=== PATIENT | female | born 1945 | race Native Hawaiian/Other Pacific Islander ===

== ENCOUNTER 2016-12-18 11:32 | Outpatient (CLI) | payer OTHER ==
[~2016-12-18 11:32] MED LIST: BENA10TA3 PO; HYDROCHLOROT12.5 M1 PO; LISI10TA11 PO; LOTENSIN HCT1 TAB PO; OMEP20CA PO; PRADAXA150 MG OR
[2016-12-18 12:02] LABS: PLATELET COUNT 218 K/uL (152-353)
[2016-12-18 12:17] LABS: POTASSIUM 4.1 mmol/L (3.6-5.2); SODIUM 138 mmol/L (136-145)
[2016-12-18 12:37] LABS: PARTIAL THROMBOPLASTIN TIME 44.8 SECONDS (24.5-33.6)
== END 2016-12-18 21:04 | disposition home or self-care (01) ==
LOC: LABW 11:32
PROVIDERS: Internal Medicine
DX: R79.1 Abnormal coagulation profile (principal); W19.XXXA Unspecified fall, initial encounter; R82.99 Other abnormal findings in urine
CPT/HCPCS: 36415; 80053; 81000; 85027; 85610; 85730

== ENCOUNTER 2016-12-24 10:27 | Outpatient (CLI) | payer OTHER | END 2016-12-24 19:14 | disposition home or self-care (01) | LOC: CT 10:27 | DX: S70.12XA Contusion of left thigh, initial encounter (principal); M54.2 Cervicalgia; W19.XXXA Unspecified fall, initial encounter ==

== ENCOUNTER 2017-03-19 10:50 | Outpatient (CLI) | payer OTHER | END 2017-03-19 20:01 | disposition home or self-care (01) | LOC: MAMMO 10:50 | DX: Z12.31 Encounter for screening mammogram for malignant neoplasm of breast (principal) | CPT/HCPCS: G0202-TC ==

== ENCOUNTER 2017-10-22 09:26 | Outpatient (CLI) | payer OTHER ==
[2017-10-22 09:41] LABS: PLATELET COUNT 211 K/uL (152-353)
[2017-10-22 10:05] LABS: POTASSIUM 4.5 mmol/L (3.6-5.2)
== END 2017-10-22 10:30 | disposition home or self-care (01) ==
LOC: LABW 09:26
PROVIDERS: Internal Medicine
DX: I10 Essential (primary) hypertension (principal); R82.99 Other abnormal findings in urine
CPT/HCPCS: 36415; 80053; 80061; 81000; 84439; 84443; 85027; 87086; 87088

== ENCOUNTER 2018-06-15 13:53 | Outpatient (CLI) | payer OTHER | END 2018-06-15 22:31 | disposition home or self-care (01) | LOC: MAMMO 13:53 | DX: Z12.31 Encounter for screening mammogram for malignant neoplasm of breast (principal) ==

== ENCOUNTER 2018-08-27 08:01 | Outpatient (CLI) | payer OTHER ==
[2018-08-27 08:21] LABS: PLATELET COUNT 198 K/uL (152-353)
[2018-08-27 08:41] LABS: POTASSIUM 4.6 mmol/L (3.6-5.2)
== END 2018-08-27 20:29 | disposition home or self-care (01) ==
LOC: LABW 08:01
PROVIDERS: Internal Medicine
DX: I42.9 Cardiomyopathy, unspecified (principal); I10 Essential (primary) hypertension; R82.998 Other abnormal findings in urine
CPT/HCPCS: 36415; 80053; 80061; 81000; 83880; 84439; 84443; 85027; 87086; 87088

== ENCOUNTER 2018-09-08 15:23 | Outpatient (CLI) | payer OTHER | END 2018-09-08 23:03 | disposition home or self-care (01) | LOC: US 15:23 | DX: I87.2 Venous insufficiency (chronic) (peripheral) (principal) ==

== ENCOUNTER 2018-09-14 10:03 | Outpatient (CLI) | payer OTHER | END 2018-09-14 22:31 | disposition home or self-care (01) | LOC: US 10:03 | DX: M79.89 Other specified soft tissue disorders (principal) ==

== ENCOUNTER 2018-09-15 08:57 | Outpatient (CLI) | payer OTHER | END 2018-09-15 19:19 | disposition home or self-care (01) | LOC: US 08:57 | DX: M79.89 Other specified soft tissue disorders (principal) ==

== ENCOUNTER 2018-10-22 15:45 | Outpatient (CLI) | payer OTHER | END 2018-10-22 19:06 | disposition home or self-care (01) | LOC: CT 15:45 | DX: M25.562 Pain in left knee (principal) ==

== ENCOUNTER 2019-02-11 09:08 | Outpatient (CLI) | payer OTHER ==
[2019-02-11 09:43] LABS: PLATELET COUNT 359 K/uL (152-353)
[2019-02-11 10:54] LABS: POTASSIUM 4.6 mmol/L (3.6-5.2)
== END 2019-02-11 19:36 | disposition home or self-care (01) ==
LOC: LABW 09:08 → RAD 11:00 → LABW 19:36
PROVIDERS: Internal Medicine
DX: Z13.820 Encounter for screening for osteoporosis (principal); I48.91 Unspecified atrial fibrillation; I10 Essential (primary) hypertension; Z79.899 Other long term (current) drug therapy; M81.0 Age-related osteoporosis without current pathological fracture; I42.8 Other cardiomyopathies
CPT/HCPCS: 36415; 80053; 80061; 81000; 82550; 83735; 83880; 84439; 84443; 85027; 87077; 87086; 87088; 87186

== ENCOUNTER 2019-02-24 10:32 | Outpatient (CLI) | payer OTHER ==
[2019-02-24 10:48] LABS: PLATELET COUNT 436 K/uL (152-353)
[2019-02-24 11:13] LABS: POTASSIUM 4.1 mmol/L (3.6-5.2)
== END 2019-02-24 19:18 | disposition home or self-care (01) ==
LOC: LABW 10:32
PROVIDERS: Physician Assistant
DX: I10 Essential (primary) hypertension (principal); K21.9 Gastro-esophageal reflux disease without esophagitis; R63.4 Abnormal weight loss; E55.9 Vitamin D deficiency, unspecified; E53.8 Deficiency of other specified B group vitamins; I42.8 Other cardiomyopathies
CPT/HCPCS: 36415; 80053; 80061; 82306; 82607; 84439; 84443; 85027; 86677

== ENCOUNTER 2019-03-14 14:33 | Outpatient (CLI) | payer OTHER | END 2019-03-14 19:41 | disposition home or self-care (01) | LOC: RAD 14:33 | DX: M19.012 Primary osteoarthritis, left shoulder (principal) ==

== ENCOUNTER 2019-05-26 12:27 | Outpatient (CLI) | payer OTHER | END 2019-05-26 22:36 | disposition home or self-care (01) | LOC: LABW 12:27 | DX: R26.81 Unsteadiness on feet (principal); E53.8 Deficiency of other specified B group vitamins | CPT/HCPCS: 36415; 82607; 85651; 86038 ==

== ENCOUNTER 2019-07-11 09:48 | Outpatient (CLI) | payer OTHER ==
[2019-07-11 10:09] LABS: PLATELET COUNT 256 K/uL (152-353)
[2019-07-11 10:41] LABS: POTASSIUM 4.3 mmol/L (3.6-5.2)
== END 2019-07-11 19:24 | disposition home or self-care (01) ==
LOC: LAB 09:48
PROVIDERS: Internal Medicine
DX: Z00.00 Encounter for general adult medical examination without abnormal findings (principal); I10 Essential (primary) hypertension; I48.91 Unspecified atrial fibrillation; R82.998 Other abnormal findings in urine
CPT/HCPCS: 80053; 80061; 81000; 84439; 84443; 85027; 87077; 87086; 87088; 87186

== ENCOUNTER 2019-08-11 09:59 | Outpatient (CLI) | payer OTHER | END 2019-08-11 19:53 | disposition home or self-care (01) | LOC: MAMMO 09:59 | DX: Z12.31 Encounter for screening mammogram for malignant neoplasm of breast (principal) ==

== ENCOUNTER 2019-11-04 20:47 | Emergency (ER) | payer OTHER ==
[~2019-11-04] VITALS: Ht 160 cm; Wt 60.8 kg
[2019-11-04 22:04] LABS: PLATELET COUNT 203 K/uL (152-353)
[2019-11-04 22:08] LABS: POTASSIUM 4.1 mmol/L (3.6-5.2)
[2019-11-04] MEDS ORDERED: BYSTOLIC5 MG PO (22:25)
[2019-11-04] MEDS ORDERED: ENTRESTO 24-261 TAB PO (22:25)
[2019-11-04] MEDS ORDERED: MOBIC15 MG PO (22:26)
[2019-11-04] MEDS ORDERED: AMIODARONE HYD100 MG PO (22:26)
[2019-11-04] MEDS ORDERED: DOXYCYCL HYC50 MG PO (22:27)
[2019-11-04] MEDS ORDERED: OMEGA 31000 MG PO (22:28)
[2019-11-04 22:41] LABS: PARTIAL THROMBOPLASTIN TIME 40.6 SECONDS (24.5-33.6)
[2019-11-04 23:24] VITALS: BP 151/82; TEMP 99.4
== END 2019-11-04 23:25 | disposition home or self-care (01) ==
LOC: ED 20:47
PROVIDERS: Family Medicine
DX: K64.4 Residual hemorrhoidal skin tags (principal); I10 Essential (primary) hypertension; I50.9 Heart failure, unspecified
CPT/HCPCS: 36415; 80053; 81000; 82272; 85027; 85610; 85730; 93005; 99283

== ENCOUNTER 2019-11-10 10:14 | Outpatient (CLI) | payer OTHER ==
[~2019-11-10 10:14] MED LIST changes: +AMIODARONE HYD100 MG PO; +BYSTOLIC5 MG PO; +DOXYCYCL HYC50 MG PO; +ENTRESTO 24-261 TAB PO; +MOBIC15 MG PO; +OMEGA 31000 MG PO
[2019-11-10 11:14] LABS: PLATELET COUNT 191 K/uL (152-353)
[2019-11-10 11:31] LABS: POTASSIUM 4.3 mmol/L (3.6-5.2)
== END 2019-11-10 19:47 | disposition home or self-care (01) ==
LOC: RAD 10:14
PROVIDERS: Internal Medicine
DX: I10 Essential (primary) hypertension (principal); I42.8 Other cardiomyopathies
CPT/HCPCS: 36415; 80053; 80061; 81000; 83880; 84439; 84443; 85027

== ENCOUNTER 2019-11-16 09:46 | Outpatient (CLI) | payer OTHER ==
[2019-11-16 10:20] LABS: POTASSIUM 4.7 mmol/L (3.6-5.2)
== END 2019-11-16 20:54 | disposition home or self-care (01) ==
LOC: LABW 09:46
PROVIDERS: Internal Medicine Cardiovascular Disease
DX: R06.09 Other forms of dyspnea (principal); Z79.899 Other long term (current) drug therapy
CPT/HCPCS: 36415; 80048; 83880

== ENCOUNTER 2020-03-26 10:03 | Emergency (ER) | payer OTHER ==
[~2020-03-26] VITALS: Ht 160 cm; Wt 65.8 kg
[2020-03-26 11:14] VITALS: BP 148/63; TEMP 98.9
== END 2020-03-26 11:16 | disposition home or self-care (01) ==
LOC: ED 10:03
DX: M79.18 Myalgia, other site (principal); Z98.890 Other specified postprocedural states; W18.39XA Other fall on same level, initial encounter; Y92.098 Other place in other non-institutional residence as the place of occurrence of the external cause
CPT/HCPCS: 96372; 99283; J1885

== ENCOUNTER 2020-04-04 15:31 | Outpatient (CLI) | payer OTHER | END 2020-04-04 21:35 | disposition home or self-care (01) | LOC: RAD 15:31 | DX: M54.5 Low back pain (principal) ==

== ENCOUNTER 2020-11-08 08:51 | Outpatient (CLI) | payer OTHER ==
[2020-11-08 09:33] LABS: PLATELET COUNT 183 K/uL (152-353)
[2020-11-08 09:42] LABS: POTASSIUM 4.6 mmol/L (3.6-5.2)
== END 2020-11-08 19:46 | disposition home or self-care (01) ==
LOC: LABW 08:51
PROVIDERS: ATTEND Internal Medicine
DX: Z00.00 Encounter for general adult medical examination without abnormal findings (principal); I10 Essential (primary) hypertension; I48.91 Unspecified atrial fibrillation; Z13.820 Encounter for screening for osteoporosis; E55.9 Vitamin D deficiency, unspecified
CPT/HCPCS: 36415; 80053; 80061; 81000; 82306; 84439; 84443; 85027

== ENCOUNTER 2020-12-06 07:50 | Day surgery (SDC) | payer OTHER ==
[2020-12-04 09:27] LABS: PLATELET COUNT 206 K/uL (152-353)
== END 2020-12-06 10:37 | disposition home or self-care (01) ==
LOC: OR 07:50
PROVIDERS: ATTEND Student in an Organized Health Care Education/Training Program
PROC: 0DBP8ZZ Excision of Rectum, Via Natural or Artificial Opening Endoscopic (ICD-10-PCS; principal; 2020-12-06)
PROC: 0DBL8ZZ Excision of Transverse Colon, Via Natural or Artificial Opening Endoscopic (ICD-10-PCS; 2020-12-06)
PROC: 0DBN8ZZ Excision of Sigmoid Colon, Via Natural or Artificial Opening Endoscopic (ICD-10-PCS; 2020-12-06)
DX: D12.3 Benign neoplasm of transverse colon (principal); K63.5 Polyp of colon; K62.1 Rectal polyp; K64.8 Other hemorrhoids; K57.30 Diverticulosis of large intestine without perforation or abscess without bleeding; K92.2 Gastrointestinal hemorrhage, unspecified; Z12.11 Encounter for screening for malignant neoplasm of colon; K92.1 Melena; Z20.828 Contact with and (suspected) exposure to other viral communicable diseases
CPT/HCPCS: 80053; 85027; 87635; J2001; J2704; U0003

== ENCOUNTER 2020-12-11 09:49 | Outpatient (CLI) | payer OTHER | END 2020-12-11 20:43 | disposition home or self-care (01) | LOC: MAMMO 09:49 | PROVIDERS: ATTEND Internal Medicine | DX: Z12.31 Encounter for screening mammogram for malignant neoplasm of breast (principal) ==

== ENCOUNTER 2020-12-24 09:44 | Outpatient (CLI) | payer OTHER | END 2020-12-24 21:36 | disposition home or self-care (01) | LOC: US 09:44 | PROVIDERS: ATTEND Student in an Organized Health Care Education/Training Program | DX: Z12.11 Encounter for screening for malignant neoplasm of colon (principal); K92.1 Melena; K57.90 Diverticulosis of intestine, part unspecified, without perforation or abscess without bleeding; K64.8 Other hemorrhoids; N95.8 Other specified menopausal and perimenopausal disorders ==